=== PATIENT | male | born 1995 | race Caucasian/White ===

== ENCOUNTER 2016-09-26 14:08 | Emergency (ER) | payer BC ==
[2016-09-26 14:21] VITALS: BP 146/94; PULSE 78; RESP 14; TEMP 97.9; O2SAT 96
[2016-09-26] MEDS ORDERED: HYDROmorphONE/DILAUDID 1 MG/ML SYR IVP ONE (14:22)
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
[2016-09-26] MEDS ORDERED: NS 1,000 ML IV ONE (14:40)
[2016-09-26 14:48] LABS: % IMMATURE GRANULYOCYTES 0.5 % (0.0-1.1); ABSOLUTE IMMATURE GRANULOCYTES 0.03 10^3/uL (0.00-0.10); ADD DIFF? NO; ADD MORPH? NO; ADD SCAN? NO; ATYPICAL LYMPHOCYTE FLAG 0 (0-99); FRAGMENT RBC FLAG 0 (0-99); HEMATOCRIT 44.7 % (40.0-51.0); HEMOGLOBIN 15.6 g/dL (13.7-17.5); LEFT SHIFT FLG 0 (0-99); LIPEMIA HEMOLYSIS FLAG 90 (0-99); MEAN CELL HEMOGLOBIN 29.3 pg (27.9-34.1); MEAN CELL HEMOGLOBIN CONCENTR. 34.9 g/dL (32.4-36.7); MEAN PLATELET VOLUME 11.1 fL (8.7-11.7); PLATELET CLUMPS FLAG 0 (0-99); PLATELET COUNT 225 10^3/uL (150-400); RED BLOOD CELL COUNT 5.32 10^6/uL (4.40-6.38); RED CELL DISTRIBUTION WIDTH 12.6 % (11.5-15.2)
[2016-09-26 14:54] LABS: ANION GAP 10 mEq/L (8-16); CALCIUM 9.8 mg/dL (8.5-10.4); CARBON DIOXIDE 24 mEq/l (22-31); CHLORIDE 107 mEq/L (97-110); CREATININE 0.9 mg/dL (0.7-1.3); GLOMERULAR FILTRATION RATE > 60; GLUCOSE 101 mg/dL (70-100); POTASSIUM 4.4 mEq/L (3.5-5.2); SODIUM 141 mEq/L (134-144)
[2016-09-26] MEDS ORDERED: IOPAMIDOL (ISOVUE-300) 100 ML BTL IV ONE (15:16)
[2016-09-26 15:44] LABS: COLOR YELLOW; LEUKOCYTE ESTERASE,URINE NEGATIVE (NEGATIVE); NITRITE,URINE NEGATIVE (NEGATIVE)
[2016-09-26 15:51] LABS: MUCUS TRACE /lpf (NONE-1+)
[2016-09-26] MEDS ORDERED: OXYCODONE/APAP 5/325 TAB ONE (16:17)
[2016-09-26] MEDS ORDERED: OXYCODONE/APAP 5/325 TAB PO ONE (16:22)
--- NOTE | 2016-09-26 17:10 | DX ---
Right Wrist, Four Views History: Wrist pain and deformity after skiing injury. Findings: There is a comminuted fracture of the distal right radius. There is a transverse component in the distal metaphysis with vertical fracture lines extending to the articular surface with the jose ate and scaphoid. Slight buckling of the posterior cortex. Surrounding soft tissue swelling. Impression: Comminuted minimally displaced intraarticular fracture of the distal radius, as above.
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
--- NOTE | 2016-09-26 17:29 | DX ---
Pelvis, Single View History: Trauma. Pain. Findings: Normal mineralization and alignment. No evidence for acute fracture or dislocation. No sign ificant joint narrowing or periarticular erosion. Impression: Unremarkable pelvis.
--- NOTE | 2016-09-26 17:40 | DX ---
Left Wrist, Four Views History: Wrist pain. Injury. Findings: Soft tissue swelling is seen dorsal to the carpal bones. Nondisplaced fracture is seen in t he distal pole of the left scaphoid bone. There appears to be a partial persistent physis of the dist al radial physis as a normal variant. No other significant osseous abnormality. Impression: Nondisplaced fracture of the distal pole of the scaphoid bone.
--- NOTE | 2016-09-26 18:21 | CT ---
CT Scan of the Abdomen and Pelvis (With Contrast) Indication: Abdominal pain. Skier versus tree. Technique: No oral or rectal contrast. 90 mL of Isovue 300 were given intravenously by machine power injection. Multidetector helical CT imaging was performed from the diaphragm to the symphysis pubis . Dose reduction techniques were utilized. Comparison: Single view of the pelvis from one hour prior. Findings: No acute fracture. Specifically, no lumbar spine or pelvic fracture. The pubic symphysis is normal. A benign limbus vertebral body is present at L3. No pneumoperitoneum, free fluid, or mesenteric edema. 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 No perinephric edema or fluid to suggest re nal contusion or laceration. Beam-hardening artifact radiating from the right arm at the patient's si de results in minimal decreased sensitivity for solid organ injury. The liver, spleen, left kidney, a drenal glands, pancreas, and gallbladder are normal. Bowel pattern is normal. The urinary bladder is empty. Prostate gland is normal size. Abdominal aorta is normal. No retroperitoneal hematoma. Lung bases are clear. No pleural effusion or pneumothorax. No low rib fractures. Impression: 1. No acute solid organ or bowel injury. 2. No acute fracture. Normal pubic symphysis. 3. 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 Comment: I have reviewed the case with Dr. Jamie Cancino who agrees with the findings in the imp ression. The results were called to Dr. Sweetie Purcell at 4:30 p.m. on September 26, 2016.
== END 2016-09-26 17:12 | disposition home or self-care (01) ==
DX: S62.015A Nondisplaced fracture of distal pole of navicular [scaphoid] bone of left wrist, initial encounter for closed fracture (principal); S52.571A Other intraarticular fracture of lower end of right radius, initial encounter for closed fracture; S39.92XA Unspecified injury of lower back, initial encounter; F17.200 Nicotine dependence, unspecified, uncomplicated; W22.09XA Striking against other stationary object, initial encounter; Y99.8 Other external cause status; Y93.23 Activity, snow (alpine) (downhill) skiing, snowboarding, sledding, tobogganing and snow tubing
CPT/HCPCS: 96374; J1170; Q9967